=== PATIENT | female | born 1990 | race Two or more races ===

== ENCOUNTER → 2023-01-14 | Outpatient (CLI) | payer MEDICAID ==
[2023-01-14 15:48] LABS: Alcohol, Urine < 3.0 mg/dL (0-10); Amphetamine Screen, Urine NEGATIVE (NEGATIVE); Barbiturate Scree,Urine NEGATIVE (NEGATIVE); Benzodiazephine Screen, Urine NEGATIVE (NEGATIVE); Cannabinoid Screen, Urine NEGATIVE (NEGATIVE); Cocaine Screen, Urine NEGATIVE (NEGATIVE); Opiate Scree,Urine NEGATIVE (NEGATIVE); Phencyclidine Screen, Urine NEGATIVE (NEGATIVE)
== END | disposition home or self-care (01) ==
LOC: LAB 15:14
PROVIDERS: ATTEND Obstetrics & Gynecology
DX: Z31.430 Encounter of female for testing for genetic disease carrier status for procreative management (principal); Z36.0 Encounter for antenatal screening for chromosomal anomalies; N39.0 Urinary tract infection, site not specified
CPT/HCPCS: 80307

== ENCOUNTER → 2023-04-14 | Outpatient (CLI) | payer MEDICAID ==
[2023-04-14 08:59] LABS: Basophils # (auto) 0 10 ^3/uL (0-0.2); Basophils % (auto) 0.4 % (0.0-2.0); Eosinophils # (auto) 0.1 10 ^3/uL (0-0.8); Eosinophils % (auto) 1.1 % (0.0-7.0); Hematocrit 37.2 % (36.0-46.0); Hemoglobin 12.2 g/dL (12.2-16.2); Lymphocytes # (auto) 2.4 10 ^3/uL (0.4-5.4); Lymphocytes % (auto) 22.9 % (10.0-50.0); Mean Corpuscular Hemoglobin 29.1 pg (28.0-32.0); Mean Corpuscular Hgb Conc. 32.9 g/dL (32.0-36.0); Mean Corpuscular Volume 88.2 fL (80.0-100.0); Monocytes # (auto) 0.8 10 ^3/uL (0-1.3); Monocytes % (auto) 7.2 % (0.0-12.0); Neutrophils # (auto) 7.2 10 ^3/uL (1.6-8.6); Neutrophils % (auto) 68.4 % (37.0-80.0); Nucleated Red Blood Cells % 0.3 %; Red Blood Cells 4.21 10^6/uL (4.0-5.20); Red Cell Distribution Width 13.8 % (11.8-14.3); White Blood Cell 10.5 10^3/uL (4.4-10.8)
== END | disposition home or self-care (01) ==
LOC: LAB 08:27
PROVIDERS: ATTEND Obstetrics & Gynecology
DX: O99.810 Abnormal glucose complicating pregnancy (principal); Z3A.00 Weeks of gestation of pregnancy not specified
CPT/HCPCS: 36415; 82951; 85025

== ENCOUNTER 2023-05-01 09:37 | Observation (INO) | payer MEDICAID ==
[~2023-05-01] VITALS: Ht 160 cm; Wt 72.6 kg
[2023-05-08] MEDS ORDERED: NIF10C PO (21:48)
== END 2023-05-01 20:37 | disposition home or self-care (01) ==
LOC: LDRP 19:01
PROVIDERS: ADMIT Obstetrics & Gynecology; ATTEND Obstetrics & Gynecology
DX: O24.419 Gestational diabetes mellitus in pregnancy, unspecified control (principal); Z3A.33 33 weeks gestation of pregnancy
CPT/HCPCS: 59025; 76818; 81002; 82948; 82962; 94760; G0378

== ENCOUNTER 2023-05-05 19:02 | Observation (INO) | payer MEDICAID ==
[2023-05-05] MEDS ORDERED: PREN-96 PO (19:18)
[2023-05-05] MEDS ORDERED: FERR1TAB31 PO (19:19)
[2023-05-05] MEDS ORDERED: METF-370 PO (19:25)
[2023-05-08] MEDS ORDERED: NIF10C PO (21:48)
== END 2023-05-05 20:42 | disposition home or self-care (01) ==
LOC: LDRP 19:02
PROVIDERS: ADMIT Obstetrics & Gynecology; ATTEND Obstetrics & Gynecology
DX: O24.419 Gestational diabetes mellitus in pregnancy, unspecified control (principal); Z3A.34 34 weeks gestation of pregnancy
CPT/HCPCS: 59025; 76818; 81002; 82948; 82962; 94760; G0378

== ENCOUNTER 2023-05-12 19:04 | Observation (INO) | payer MEDICAID ==
[~2023-05-12 19:04] MED LIST: FERR1TAB31 PO; METF-370 PO; NIF10C PO; PREN-96 PO
== END 2023-05-12 20:41 | disposition home or self-care (01) ==
LOC: LDRP 19:04
PROVIDERS: ADMIT Obstetrics & Gynecology; ATTEND Obstetrics & Gynecology
DX: O24.419 Gestational diabetes mellitus in pregnancy, unspecified control (principal); O60.03 Preterm labor without delivery, third trimester; Z3A.35 35 weeks gestation of pregnancy
CPT/HCPCS: 59025; 76817; 76818; 81002; 82948; 82962; 94760; G0378

== ENCOUNTER 2023-05-15 18:57 | Observation (INO) | payer MEDICAID | END 2023-05-15 20:05 | disposition home or self-care (01) | LOC: LDRP 18:57 | PROVIDERS: ADMIT Obstetrics & Gynecology; ATTEND Obstetrics & Gynecology | DX: O24.419 Gestational diabetes mellitus in pregnancy, unspecified control (principal); Z3A.35 35 weeks gestation of pregnancy | CPT/HCPCS: 59025; 76818; 81002; 82948; 82962; 94760; G0378 ==

== ENCOUNTER 2023-05-19 18:57 | Observation (INO) | payer MEDICAID ==
[~2023-05-19] VITALS: Ht 160 cm; Wt 83.9 kg
[~2023-05-19 18:57] MED LIST changes: -NIF10C PO
== END 2023-05-19 21:18 | disposition home or self-care (01) ==
LOC: LDRP 18:57
PROVIDERS: ADMIT Obstetrics & Gynecology; ATTEND Obstetrics & Gynecology
DX: O24.419 Gestational diabetes mellitus in pregnancy, unspecified control (principal); Z3A.36 36 weeks gestation of pregnancy
CPT/HCPCS: 59025; 76818; 81002; 82948; 82962; 94760; G0378

== ENCOUNTER → 2023-05-21 | Outpatient (CLI) | payer MEDICAID ==
[2023-05-21 12:06] LABS: Basophils # (auto) 0 10 ^3/uL (0-0.2); Basophils % (auto) 0.3 % (0.0-2.0); Eosinophils # (auto) 0 10 ^3/uL (0-0.8); Eosinophils % (auto) 0.5 % (0.0-7.0); Lymphocytes # (auto) 1.9 10 ^3/uL (0.4-5.4); Mean Corpuscular Hgb Conc. 33.3 g/dL (32.0-36.0); Monocytes # (auto) 0.6 10 ^3/uL (0-1.3); Neutrophils # (auto) 6.4 10 ^3/uL (1.6-8.6); Neutrophils % (auto) 71.2 % (37.0-80.0); Nucleated Red Blood Cells % 0.1 %; Red Blood Cells 4.48 10^6/uL (4.0-5.20); Red Cell Distribution Width 15.3 % (11.8-14.3)
[2023-05-22 07:07] LABS: RPR Non Reactive (Non Reactive)
[2023-05-22 11:07] LABS: Treponema Pallidum Ab LC Non Reactive (Non Reactive)
== END | disposition home or self-care (01) ==
LOC: LAB 11:41
PROVIDERS: ATTEND Obstetrics & Gynecology
DX: Z11.3 Encounter for screening for infections with a predominantly sexual mode of transmission (principal)
CPT/HCPCS: 36415; 84112; 85025; 86592

== ENCOUNTER 2023-05-22 18:54 | Observation (INO) | payer MEDICAID | END 2023-05-22 21:09 | disposition home or self-care (01) | LOC: LDRP 18:54 | PROVIDERS: ADMIT Obstetrics & Gynecology; ATTEND Obstetrics & Gynecology | DX: O24.419 Gestational diabetes mellitus in pregnancy, unspecified control (principal); Z3A.36 36 weeks gestation of pregnancy | CPT/HCPCS: 59025; 76818; 81002; 82962; G0378 ==

== ENCOUNTER 2023-05-26 19:04 | Observation (INO) | payer MEDICAID | END 2023-05-26 20:19 | disposition home or self-care (01) | LOC: LDRP 19:04 | PROVIDERS: ADMIT Obstetrics & Gynecology; ATTEND Obstetrics & Gynecology | DX: O24.419 Gestational diabetes mellitus in pregnancy, unspecified control (principal); Z3A.37 37 weeks gestation of pregnancy | CPT/HCPCS: 59025; 76818; 81002; 82948; 82962; 94760; G0378 ==

== ENCOUNTER 2023-05-29 20:07 | Observation (INO) | payer MEDICAID | END 2023-05-29 22:36 | disposition home or self-care (01) | LOC: LDRP 20:07 | PROVIDERS: ADMIT Obstetrics & Gynecology; ATTEND Obstetrics & Gynecology | DX: O24.419 Gestational diabetes mellitus in pregnancy, unspecified control (principal); O62.9 Abnormality of forces of labor, unspecified; O26.893 Other specified pregnancy related conditions, third trimester; R51.9 Headache, unspecified; Z3A.37 37 weeks gestation of pregnancy | CPT/HCPCS: 59025; 76818; 81002; 82948; 82962; 94760; G0378 ==

== ENCOUNTER 2023-06-02 18:51 | Observation (INO) | payer MEDICAID | END 2023-06-02 20:12 | disposition home or self-care (01) | LOC: LDRP 18:51 | PROVIDERS: ADMIT Obstetrics & Gynecology; ATTEND Obstetrics & Gynecology | DX: O24.419 Gestational diabetes mellitus in pregnancy, unspecified control (principal); O62.9 Abnormality of forces of labor, unspecified; Z3A.38 38 weeks gestation of pregnancy | CPT/HCPCS: 59025; 76818; 81002; 82948; 82962; 94760; G0378 ==

== ENCOUNTER 2023-06-05 19:07 | Observation (INO) | payer MEDICAID ==
[~2023-06-05] VITALS: Ht 160 cm; Wt 84.8 kg
== END 2023-06-05 20:34 | disposition home or self-care (01) ==
LOC: LDRP 19:07
PROVIDERS: ADMIT Obstetrics & Gynecology; ATTEND Obstetrics & Gynecology
DX: O24.419 Gestational diabetes mellitus in pregnancy, unspecified control (principal); Z3A.38 38 weeks gestation of pregnancy
CPT/HCPCS: 59025; 76818; 81002; 82948; 82962; 94760; G0378

== ENCOUNTER 2023-06-08 09:13 | Inpatient (IN) | payer MEDICAID ==
[~2023-06-08] VITALS: Ht 160 cm; Wt 84.8 kg
[2023-06-08] MEDS ORDERED: WITCH HAZEL-GLYCERIN PAD TOP PRN (09:30)
[2023-06-08] MEDS ORDERED: PHISODERM TOP SOLN 240ML BTL TOP PRN (09:30)
[2023-06-08] MEDS ORDERED: BUTORPHANOL TARTRATE 2 MG/1 ML VIAL IV PRN ×2 (09:30)
[2023-06-08] MEDS ORDERED: DERMOPLAST 60ML BOTTLE TOP PRN (09:30)
[2023-06-08] MEDS ORDERED: PROMETHAZINE HCL 25 MG/ML 1ML IV PRN (09:30)
[2023-06-08] MEDS ORDERED: miSOPROStol 50 MCG per PRE-CUT 1/2 TAB PO PRN (09:30)
[2023-06-08] MEDS ORDERED: LIDOCAINE 2%HCL (LOCAL ANESTH.) INJ 20ML MDV IJ PRN (09:30)
[2023-06-08] MEDS ORDERED: NS/OXYTOCIN 20UNITS 500 ML IV ONE ×2 (09:30→10:00)
[2023-06-08] MEDS ORDERED: LACTATED RINGER'S 1,000 ML IV SCH ×2 (09:30→15:30)
[2023-06-08 10:16] LABS: Basophils # (auto) 0 10 ^3/uL (0-0.2); Basophils % (auto) 0.4 % (0.0-2.0); Eosinophils # (auto) 0.1 10 ^3/uL (0-0.8); Eosinophils % (auto) 0.6 % (0.0-7.0); Hematocrit 39.5 % (36.0-46.0); Hemoglobin 13.2 g/dL (12.2-16.2); Lymphocytes # (auto) 2.5 10 ^3/uL (0.4-5.4); Lymphocytes % (auto) 24.6 % (10.0-50.0); Mean Corpuscular Hemoglobin 28.5 pg (28.0-32.0); Mean Corpuscular Hgb Conc. 33.3 g/dL (32.0-36.0); Mean Corpuscular Volume 85.6 fL (80.0-100.0); Monocytes # (auto) 0.6 10 ^3/uL (0-1.3); Monocytes % (auto) 5.7 % (0.0-12.0); Neutrophils # (auto) 6.9 10 ^3/uL (1.6-8.6); Neutrophils % (auto) 68.7 % (37.0-80.0); Nucleated Red Blood Cells % 0.2 %; Red Blood Cells 4.61 10^6/uL (4.0-5.20); Red Cell Distribution Width 15.5 % (11.8-14.3)
[2023-06-08] MEDS ORDERED: LACT. RINGERS/OXYTOCIN 20UNITS 500 ML IV ONE ×2 (10:30→11:00)
[2023-06-08 10:49] LABS: Alanine Aminotransferase 11 U/L (7-40); Albumin 3.8 g/dL (3.2-4.8); Alkaline Phosphatase 177 U/L (46-116); Anion Gap 12.5 (5-15); Aspartate Aminotransferase 19 U/L (13-40); BUN/Creatinine Ratio 13.6 (10.0-20.0); Bilirubin, Total 0.5 mg/dL (0.2-1.0); Blood Urea Nitrogen 8 mg/dL (9-23); Calcium 9.5 mg/dL (8.5-10.1); Carbon Dioxide 18.5 mmol/L (20-30); Chloride 103 mmol/L (98-107); Glucose 143 mg/dL (74-106); Potassium 3.4 mmol/L (3.5-5.1); Sodium 134 mmol/L (136-145); Total Protein 6.9 g/dL (5.7-8.2)
[2023-06-08 11:45] LABS: INR 0.93 (0.9-1.15); Partial Thromboplastin Time 27.8 SEC (24.5-34.5); Prothrombin Time 9.8 sec (9.3-11.8)
[2023-06-08 12:57] LABS: Amphetamine Screen, Urine Neg (NEGATIVE); Barbiturate Scree,Urine Neg (NEGATIVE); Benzodiazephine Screen, Urine Neg (NEGATIVE); Cannabinoid Screen, Urine Neg (NEGATIVE); Cocaine Screen, Urine Neg (NEGATIVE); Opiate Scree,Urine Neg (NEGATIVE); Phencyclidine Screen, Urine Neg (NEGATIVE); Urine Bacteria FEW /hpf (None Seen); Urine Blood TRACE /uL (Negative); Urine Clarity Clear (Clear); Urine Color Yellow (Yellow); Urine Mucus FEW (None Seen); Urine Protein, UAD TRACE (Negative); Urine Urobilinogen Normal (Negative); Urine WBC 3 /hpf (0 - 5); Urine pH 5.5 (5.0-8.0)
[2023-06-08] MEDS ORDERED: ceFAZolin 2 GM/D5W100ml 100 ML IV ONE (15:30)
[2023-06-08] MEDS ORDERED: LACTATED RINGER'S 1,000 ML IV ONE (15:30)
[2023-06-08] MEDS ORDERED: TETRACAINE 1% INJ 2 ML VIAL IJ ONE (16:38)
[2023-06-08] MEDS ORDERED: GLYCOPYRROLATE 0.2 MG/ML 1ML VIAL ONE (16:39)
[2023-06-08] MEDS ORDERED: oxyTOCIN 10 UNIT/ML 10ML VIAL ONE (16:39)
[2023-06-08] MEDS ORDERED: MORPHINE SULF PF 5 MG/10 ML VIAL ONE (16:39)
[2023-06-08] MEDS ORDERED: ONDANSETRON HCL 4 MG/2 ML VIAL ONE (16:39)
[2023-06-08] MEDS ORDERED: ePHEDrine SULFATE 50 MG/ML AMP ONE (16:39)
[2023-06-08] MEDS ORDERED: fentaNYL CITRATE 100 MCG/2 ML VL ONE (16:39)
[2023-06-08] MEDS ORDERED: PERCOT PO (16:43)
[2023-06-08] MEDS ORDERED: DOCU-94 PO (16:43)
[2023-06-08] MEDS ORDERED: IBUP-1456 PO (16:43)
[2023-06-08] MEDS ORDERED: GUM (CHEWING) 1 GUM CHEW CHEW ONE (16:45)
[2023-06-08] MEDS ORDERED: ONDANSETRON HCL 4 MG/2 ML VIAL IV PRN ×3 (16:45→22:00)
[2023-06-08] MEDS ORDERED: ceFAZolin 1GM/50ML 50 ML IV SCH (16:45)
[2023-06-08] MEDS ORDERED: LACT. RINGERS/OXYTOCIN 20UNITS 1,000 ML IV ONE (16:45)
[2023-06-08] MEDS ORDERED: ceFAZolin 1GM VL ONE (17:02)
[2023-06-08] MEDS ORDERED: CARBOPROST TROMETHAMINE 250 MCG/1ML VIAL IM ONE (17:26)
[2023-06-08 18:07] VITALS: RESP 13; O2SAT 99
[2023-06-08] MEDS ORDERED: ACCU-CHEK COMFORT CURVE STRIP VI ONE (18:30)
[2023-06-08] MEDS ORDERED: KETOROLAC TROMETH 30 MG/ML 1ML VIAL IV PRN (18:30)
[2023-06-08] MEDS ORDERED: NALBUPHINE HCL 10 MG/1ml INJECTION SUBCUT ONE (18:30)
[2023-06-08] MEDS ORDERED: DexAMETHasone SOD PHOS 10MG/1ML VIAL INJ IV PRN (18:30)
[2023-06-08] MEDS ORDERED: diphenhdrAMINE HCL 50 MG/1 ML VL IV PRN (18:30)
[2023-06-08 19:10] VITALS: BP 118/81; PULSE 79; RESP 16; O2SAT 100
[2023-06-08 20:00] VITALS: BP 116/87; PULSE 75; RESP 16; O2SAT 100
[2023-06-08 21:00] VITALS: BP 118/69; PULSE 76; RESP 18; O2SAT 100
[2023-06-08 22:00] VITALS: BP 105/75; PULSE 74; RESP 18; O2SAT 100
[2023-06-08] MEDS ORDERED: MORPHINE SULFATE 4 MG/ML SYR/VIAL IV PRN (22:00)
[2023-06-08] MEDS: ceFAZolin 1GM/50ML 50 ML IV SCH (22:15)
[2023-06-08 22:32] LABS: Basophils # (auto) 0.1 10 ^3/uL (0-0.2); Basophils % (auto) 0.5 % (0.0-2.0); Eosinophils # (auto) 0 10 ^3/uL (0-0.8); Eosinophils % (auto) 0.1 % (0.0-7.0); Hematocrit 33.5 % (36.0-46.0); Hemoglobin 11.1 g/dL (12.2-16.2); Lymphocytes # (auto) 2.2 10 ^3/uL (0.4-5.4); Lymphocytes % (auto) 11.9 % (10.0-50.0); Mean Corpuscular Hemoglobin 28.1 pg (28.0-32.0); Mean Corpuscular Hgb Conc. 33.1 g/dL (32.0-36.0); Mean Corpuscular Volume 84.9 fL (80.0-100.0); Monocytes # (auto) 0.8 10 ^3/uL (0-1.3); Monocytes % (auto) 4.3 % (0.0-12.0); Neutrophils # (auto) 15.3 10 ^3/uL (1.6-8.6); Neutrophils % (auto) 83.2 % (37.0-80.0); Red Blood Cells 3.94 10^6/uL (4.0-5.20); Red Cell Distribution Width 15.2 % (11.8-14.3); White Blood Cell 18.4 10^3/uL (4.4-10.8)
[2023-06-08 23:00] VITALS: BP 107/68; PULSE 85; RESP 16; TEMP 98.5; O2SAT 100
[2023-06-09] VITALS (16 sets, daily range): BP systolic 99–140; BP diastolic 58–82; PULSE 73–110; RESP 14–68; TEMP 97.8–98.9; O2SAT 96–100
[2023-06-09] MEDS: ACETAMINOPHEN IV 1000 MG/100ML (10MG/ML) IV PRN ×2 (01:58→11:09)
[2023-06-09] MEDS: ceFAZolin 1GM/50ML 50 ML IV SCH ×2 (05:57→13:35)
[2023-06-09] MEDS: LACTATED RINGER'S 1,000 ML IV SCH ×3 (06:00→14:00)
[2023-06-09 07:23] LABS: Basophils # (auto) 0 10 ^3/uL (0-0.2); Basophils % (auto) 0.3 % (0.0-2.0); Eosinophils # (auto) 0 10 ^3/uL (0-0.8); Eosinophils % (auto) 0.1 % (0.0-7.0); Hematocrit 29.5 % (36.0-46.0); Hemoglobin 9.8 g/dL (12.2-16.2); Lymphocytes # (auto) 2.1 10 ^3/uL (0.4-5.4); Mean Corpuscular Hemoglobin 29.2 pg (28.0-32.0); Mean Corpuscular Hgb Conc. 33.4 g/dL (32.0-36.0); Mean Corpuscular Volume 87.3 fL (80.0-100.0); Monocytes # (auto) 0.6 10 ^3/uL (0-1.3); Monocytes % (auto) 4.8 % (0.0-12.0); Neutrophils # (auto) 10.2 10 ^3/uL (1.6-8.6); Neutrophils % (auto) 78.8 % (37.0-80.0); Red Blood Cells 3.38 10^6/uL (4.0-5.20); Red Cell Distribution Width 15.4 % (11.8-14.3); White Blood Cell 12.9 10^3/uL (4.4-10.8)
[2023-06-09] MEDS ORDERED: HYDROcodone-ACET 5/325MG TAB PO PRN (15:00)
[2023-06-09] MEDS ORDERED: BISACODYL 10 MG RECT SUPP PR PRN (15:00)
[2023-06-09] MEDS: SIMETHICONE 80 MG CHEWABLE TABLET PO SCH ×2 (17:56→22:05)
[2023-06-09] MEDS: DOCUSATE SOD 100 MG CAP PO SCH (22:05)
[2023-06-09] MEDS: IBUPROFEN 800 MG TAB PO PRN (23:14)
[2023-06-10 03:00] VITALS: BP 115/54; PULSE 57; RESP 18; TEMP 98.8; O2SAT 98
[2023-06-10] MEDS: HYDROcodone-ACET 5/325MG TAB PO PRN ×3 (06:31→21:38)
[2023-06-10] MEDS: SIMETHICONE 80 MG CHEWABLE TABLET PO SCH ×4 (06:35→21:34)
[2023-06-10 07:30] VITALS: BP 113/72; PULSE 79; RESP 18; TEMP 98.8; O2SAT 97
[2023-06-10] MEDS: DOCUSATE SOD 100 MG CAP PO SCH ×2 (10:00→21:34)
[2023-06-10] MEDS ORDERED: DOCUSATE CALCIUM 240 MG CAP PO SCH (10:00)
[2023-06-10 11:14] VITALS: BP 109/68; PULSE 74; RESP 18; TEMP 97.9; O2SAT 97
[2023-06-10] MEDS: IBUPROFEN 800 MG TAB PO PRN (11:14)
[2023-06-10 15:30] VITALS: BP 111/72; PULSE 77; RESP 18; TEMP 98.6; O2SAT 98
[2023-06-10 18:39] VITALS: BP 107/69; PULSE 91; RESP 15; TEMP 97.8; O2SAT 97
[2023-06-10 22:45] VITALS: BP 111/72; PULSE 101; RESP 17; TEMP 98.1; O2SAT 97
[2023-06-11] MEDS: HYDROcodone-ACET 5/325MG TAB PO PRN (04:11)
[2023-06-11 05:07] LABS: RPR Non Reactive (Non Reactive)
[2023-06-11] MEDS: SIMETHICONE 80 MG CHEWABLE TABLET PO SCH (05:30)
[2023-06-11 07:05] VITALS: BP 111/75; PULSE 91; RESP 15; TEMP 97.8; O2SAT 97
[2023-06-11 21:06] LABS: Treponema pallidum Ab (FTA-Ab) Reactive (Non Reactive)
== END 2023-06-11 09:00 | disposition home or self-care (01) | DRG 540 ==
LOC: UNDOADMIN 09:13 → LDRP 09:13
PROVIDERS: ADMIT Obstetrics & Gynecology; ATTEND Obstetrics & Gynecology
PROC: 10D00Z1 Extraction of Products of Conception, Low, Open Approach (ICD-10-PCS; principal; 2023-06-08 17:00)
DX: O24.429 Gestational diabetes mellitus in childbirth, unspecified control (principal); O45.93 Premature separation of placenta, unspecified, third trimester; Z37.0 Single live birth; O99.344 Other mental disorders complicating childbirth; F41.9 Anxiety disorder, unspecified; Z3A.39 39 weeks gestation of pregnancy; O62.2 Other uterine inertia
CPT/HCPCS: 36415; 59025; 76805; 80053; 80307; 81001; 81002; 82962; 84112; 85025; 85610; 85730; 86592; 86850; 86900; 86901; 94760; 94762; 96360; 96361; 96366; 96374; G0378; J0131; J0690; J2405; J2590